=== PATIENT | female | born 1975 | race Caucasian/White ===

== ENCOUNTER 2016-11-12 12:40 | Emergency (ER) | payer MEDICAID ==
[~2016-11-12] VITALS: Ht 165.1 cm; Wt 73.9 kg
[~2016-11-12 12:40] MED LIST: NITR-85 PO
[2016-11-12 12:51] VITALS: BP_SYST 122
--- NOTE | 2016-11-12 12:56 | NUR ---
Pt placed to ER waiting room in stable condition.
--- NOTE | 2016-11-12 14:27 | NUR ---
ER at bedside examining patient.
--- NOTE | 2016-11-12 14:28 | NUR ---
pt c/o right thigh numbness since herina surgery on 10/13/16,sent by PMD for MRI. decreased sensation to right thigh. circulation and ROM intact. distal pulse palpable.
--- NOTE | 2016-11-12 15:06 | NUR ---
report given to jermain RAMIREZ
--- NOTE | 2016-11-12 15:47 | NUR ---
Social Service Note: DIRECTOR PRIVATE was called to the ED to provide emotional support for pt. Pt explains she is waiting for MRI authorization. DIRECTOR PRIVATE spoke to hospital correctional counselor/case manager and asked that pt's insurance group be contacted to see if pt has a pending MRI authorization. CM contacted pt's insurance and spoke to Soo who stated that pt has an authorization for an MRI at [facility]. DIRECTOR PRIVATE provided pt with information for the travel insurance agent. Emotional support was provided. DIRECTOR PRIVATE will remain available for support and will follow up as needed.
[2016-11-12 15:57] VITALS: BP_SYST 122
--- NOTE | 2016-11-12 15:59 | NUR ---
Patient given written and verbal discharge instructions and verbalizes understanding. ER MD discussed with patient the results and treatment provided. Patient in stable condition. ID arm band removed. Rx of [place] given. Patient educated on pain management and to follow up with PMD. Pain Scale 5. Opportunity for questions provided and answered.
== END 2016-11-12 15:59 | disposition home or self-care (01) ==
LOC: SED 12:40
DX: M79.651 Pain in right thigh (principal); Z98.890 Other specified postprocedural states; Z88.1 Allergy status to other antibiotic agents
CPT/HCPCS: 81025; 99283